=== PATIENT | female | born 1975 | race Caucasian/White ===

== ENCOUNTER → 2017-05-05 | Outpatient (CLI) | payer OTHER | LOC: FIMAGING 15:38 | PROVIDERS: ATTEND Family Medicine | DX: Z12.31 Encounter for screening mammogram for malignant neoplasm of breast (principal) ==

== ENCOUNTER → 2017-06-12 | Outpatient (CLI) | payer OTHER | LOC: FIMAGING 15:50 | PROVIDERS: ATTEND Obstetrics & Gynecology | DX: N83.201 Unspecified ovarian cyst, right side (principal); N83.02 Follicular cyst of left ovary; Z97.5 Presence of (intrauterine) contraceptive device ==

== ENCOUNTER 2018-01-18 05:59 | Day surgery (SDC) | payer OTHER ==
[2018-01-18] MEDS ORDERED: LR 1,000 ML IV ONE (06:24)
[2018-01-18] MEDS ORDERED: LIDOCAINE 1% 2 ML INJ ID PRN (06:24)
--- NOTE | 2018-01-18 06:49 | PDHPUP ---
History & Physical Update H&P update statement: This history and physical update is based on an assessment of the patient which was completed after admission or registration (within 24 hours), but prior to the surgery/procedure. H&P update: H&P reviewed & patient examined, no change in patient's condition since H&P completed
[2018-01-18] MEDS ORDERED: MIDAZOLAM 2 MG/2 ML VIAL IVP ONE (07:12)
--- NOTE | 2018-01-18 07:14 | PDANEPAE ---
ANE History of Present Illness screening colonoscopy for positive family history and previous polyps ANE Past Medical History - Cardiovascular History Hx Hypertension: No Hx Arrhythmias: Yes Hx Chest Pain: No Hx Coronary Artery / Peripheral Vascular Disease: No Hx CHF / Valvular Disease: No Hx Palpitations: No Cardiovascular History Comment: occasional palpitations, no w/u. no associated symptoms including syncope, near syncope, chest pain, fatigue, nausea, diaphoresis, decreased functional capacity - Pulmonary History Hx COPD: No Hx Asthma/Reactive Airway Disease: No Hx Recent Upper Respiratory Infection: No Hx Oxygen in Use at Home: No Hx Sleep Apnea: No Sleep Apnea Screening Result - Last Documented: Negative - Neurologic History Hx Cerebrovascular Accident: No Hx Seizures: No Hx Dementia: No - Endocrine History Hx Diabetes: No - Renal History Hx Renal Disorders: No - Liver History Hx Hepatic Disorders: No - Neurological & Psychiatric Hx Hx Neurological and Psychiatric Disorders: No - Cancer History Hx Cancer: No Cancer History Comment: small skin spots removed - Congenital Disorder History Hx Congenital Disorders: No - GI History Hx Gastrointestinal Disorders: Yes Gastrointestinal History Comment: hx of gastritis - Other Health History Other Health History: wears glasses - Chronic Pain History Chronic Pain: No - Surgical History Prior Surgeries: colonoscopies. right wrist fx repair. abcess removal on left occipital area ANE Review of Systems Review of Systems: - Exercise capacity METS (RN): 5 METS ANE Patient History - Allergies Allergies/Adverse Reactions: No Known Allergies Allergy (Verified 12/24/17 16:54) - Home Medications Home Medications: NK [No Known Home Meds] 12/24/17 [Last Taken Unknown] - NPO status NPO Since - Liquids (Date): 01/17/18 NPO Since - Liquids (Time): 23:30 NPO Since - Solids (Date): 01/17/18 NPO Since - Solids (Time): 14:00 - Smoking Hx Smoking Status: Former smoker - Family Anes Hx Family Hx Anesthesia Complications: none ANE Labs/Vital Signs - Vital Signs Blood Pressure: 112/73 Heart Rate: 60 Respiratory Rate: 14 O2 Sat (%): 97 Height: 158.75 cm Weight: 49.895 kg ANE Physical Exam - Airway Neck exam: FROM Mallampati Score: Class 1 Mouth exam: normal dental/mouth exam - Pulmonary Pulmonary: no respiratory distress - Cardiovascular Cardiovascular: regular rate and rhythym - ASA Status ASA Status: II ANE Anesthesia Plan Anesthesia Plan: GA with mask
[2018-01-18] MEDS ORDERED: LIDOCAINE 2% 100 MG/5 ML SYR ONE (07:27)
[2018-01-18] MEDS ORDERED: fentaNYL 100 MCG/2 ML INJ ONE (07:27)
[2018-01-18] MEDS ORDERED: PROPOFOL/EMULSION 500 MG/50 ML BOTTLE IV ONE (07:27)
[2018-01-18] MEDS ORDERED: LIDOCAINE 2% 5 ML SDV ONE (07:32)
[2018-01-18] MEDS ORDERED: oxyCODONE IR 5 MG TAB PO PRN (08:07)
[2018-01-18] MEDS ORDERED: LR 500 ML IV PRN (08:07)
[2018-01-18] MEDS ORDERED: fentaNYL 100 MCG/2 ML INJ IVP PRN (08:07)
[2018-01-18] MEDS ORDERED: MEPERIDINE 25 MG/0.5 ML AMP IVP PRN (08:07)
[2018-01-18] MEDS ORDERED: DEXAMETHASONE 4 MG/ML VIAL IVP PRN (08:07)
[2018-01-18] MEDS ORDERED: ONDANSETRON 4 MG/2 ML VIAL IVP PRN (08:07)
[2018-01-18] MEDS ORDERED: NALOXONE HCL 0.4 MG/ML INJ IVP PRN (08:07)
[2018-01-18] MEDS ORDERED: PROPOFOL 200 MG/20 ML VIAL ONE (08:21)
[2018-01-18 09:06] VITALS: BP 134/88
--- NOTE | 2018-01-18 09:12 | GOP ---
DATE OF OPERATION: 01/18/2018 SURGEON: Dangelo Miller MD ANESTHESIA: MAC. ANESTHESIOLOGIST: Dr. Fajardo. PREOPERATIVE DIAGNOSIS: Colon polyp, family history of colon carcinoma. POSTOPERATIVE DIAGNOSIS: Colon polyp, family history of colon carcinoma. PROCEDURE PERFORMED: Total colonoscopy. FINDINGS: Normal colon. INDICATIONS: 42-year-old female with a strong history strong family history of colon cancer as well as prior history of colon polyps. She is undergoing a screening colonoscopy at this time. DESCRIPTION OF PROCEDURE: Monitored anesthesia was started, the patient was placed in the left lateral decubitus position. Digital exam disclosed no intrarectal masses. The colonoscope was inserted from the anus to the ileocecal valve as evidenced by the terminal ileal folds as well as appendiceal orifice. The prep was of excellent quality. The colon was extremely redundant and floppy. The scope was slowly withdrawn showing a normal colon without diverticula, AVMs, masses, or polyps. Retroflexion showed no significant internal hemorrhoids. The scope was withdrawn uneventfully. The patient was taken to recovery in good condition. RECOMMENDATIONS: Repeat colonoscopy in 5 years given family history. /[id number]/MODL MTDD
--- NOTE | 2018-01-18 15:16 | POSTANESTH ---
Post Anesthetic Evaluation Cardiovascular Status: Normal, Stable Respiratory Status: Normal, Stable Level of Consciousness/Mental Status: Can Participate in Eval Pain Control: Adequate, Prn Tx Ordered Nausea/Vomiting Control: Adequate, Prn Tx Ordered Complications Possibly Related to Anesthesia: None Noted (patient seen prior to dc. pace of cases did nt allow for dcumentation at time of exam. well. no questions or complaints)
== END 2018-01-18 09:20 | disposition home or self-care (01) ==
LOC: FSGY 05:59
PROVIDERS: ATTEND Surgery
PROC: 0DJD8ZZ Inspection of Lower Intestinal Tract, Via Natural or Artificial Opening Endoscopic (ICD-10-PCS; principal; 2018-01-18 07:30)
DX: Z12.11 Encounter for screening for malignant neoplasm of colon (principal); Z86.010 Personal history of colon polyps; Z87.891 Personal history of nicotine dependence; Z80.0 Family history of malignant neoplasm of digestive organs
CPT/HCPCS: J2001; J2704; J3010